=== PATIENT | female | born 1990 | race Two or more races ===

== ENCOUNTER 2016-12-18 09:25 | Emergency (ER) | payer SELFPAY ==
[2016-12-18 09:34] VITALS: BP 127/85; PULSE 71; TEMP 98.4; BMI 30.9
[2016-12-18] MEDS ORDERED: ACETAMINOPHEN 325 MG TABLET (FP) PO ONE (11:18)
--- NOTE | 2016-12-18 11:21 | PDOC ---
History of Present Illness - General Chief Complaint: Edema Stated Complaint: SWOLLEN LEGS Time Seen by Provider: 12/18/16 10:21 History Source: Patient - History of Present Illness Initial Comments: 12/18/16 11:16 26 year old female with right ankle pain and swelling x 15 days. denies injury, SOB, cough,recent travel. patient reports having an IUD. patient reports that she has a history of elevated uric acid. Lower Ext. Injury Location - Specific Injury Location Hips: left hip: no evidence of injury Extremity Pain Location - Extremity Pain Location Extremity Pain Locations: right: ankle (swelling with +1 edema) Past History - Travel Traveled outside of the country in the last 30 days: Yes Close contact w/someone who was outside of country & ill: No - Past Medical History Allergies/Adverse Reactions: Allergies Allergy/AdvReac Type Severity Reaction Status Date / Time No Known Drug Allergies Allergy Verified 12/18/16 09:34 Home Medications: Ambulatory Orders Ibuprofen 600 mg PO QID PRN #20 tablet 12/18/16 Anemia: No Asthma: No Cancer: No Cardiac Disorders: No Diabetes: No HTN: No Seizures: No Thyroid Disease: No Other medical history: GOUT - Psycho/Social/Smoking Cessation Hx Suicidal Ideation: No Smoking Status: No Smoking History: Never smoked Have you smoked in the past 12 months: No Number of Cigarettes Smoked Daily: 0 Hx Alcohol Use: No Drug/Substance Use Hx: No Hx Substance Use Treatment: No Review of Systems - Review of Systems Able to Perform ROS?: Yes Is the patient limited Romansh proficient: No Constitutional: No: Symptoms Reported, See HPI, Chills, Diaphoresis, Fever, Loss of Appetite, Malaise, Night Sweats, Weakness, Weight Stable, Unintentional Wgt. Loss, Unexplained wgt Loss, Other Musculoskeletal: Yes: Other (right ankle pain with swelling) *Physical Exam - Vital Signs Last Vital Signs Temp Pulse Resp BP Pulse Ox 98.4 F 71 18 127/85 98 12/18/16 09:31 12/18/16 09:31 12/18/16 09:31 12/18/16 09:31 12/18/16 09:31 - Physical Exam General Appearance: Yes: Appropriately Dressed Respiratory/Chest: positive: Lungs Clear, Normal Breath Sounds Cardiovascular: positive: Regular Rhythm, Regular Rate Gastrointestinal/Abdominal: positive: Normal Bowel Sounds, Soft Extremity: positive: Normal Capillary Refill, Normal Inspection, Normal Range of Motion, Other (equal pedal pulse + 1 pitting edema to right ankle and foot. pain with flexion) Integumentary: positive: Normal Color, Dry, Warm Neurologic: positive: Fully Oriented, Alert, Normal Mood/Affect Progress Note - Progress Note Progress Note: A: right ankle pain and swelling r/o DVT. likely gout flare up? P: Pain control U/s lower extremity *DC/Admit/Observation/Transfer Diagnosis at time of Disposition: Acute right ankle pain, Pedal edema - Discharge Dispostion Disposition: HOME - Prescriptions Prescriptions: Ibuprofen 600 mg PO QID PRN #20 tablet PRN Reason: Mild Pain - Referrals Referrals: Awilda Price MD [Staff Physician] - 2 Days - Patient Instructions Printed Discharge Instructions: DI for Ankle Pain Additional Instructions: elevate your legs. take ibuprofen 600 mg every 6 hours as needed for pain. splint for comfort. follow up with your doctor as soon as possible. - Post Discharge Activity Work/School Note: Back to Work
[2016-12-18] MEDS ORDERED: ACETAMINOPHEN 325 MG TABLET (FP) ONE (11:23)
== END 2016-12-18 12:53 | disposition home or self-care (01) ==
LOC: JERFT 09:25
DX: M25.571 Pain in right ankle and joints of right foot (principal); R60.0 Localized edema
CPT/HCPCS: 93971-TC; 99281-25

== ENCOUNTER 2020-08-06 08:02 | Inpatient (IN) | payer OTHER ==
[2020-08-06] MEDS: ELECTROLYTE-148 SOLN 1,000 ML IV SCH (09:20)
[2020-08-06 09:35] VITALS: BMI 36.0
[2020-08-06 09:35] LABS: BASO % 0.3 % (0-2.0); EOS % 1.3 % (0-4.5); HEMATOCRIT 33.3 % (32.4-45.2); HEMOGLOBIN 11.6 GM/dL (10.7-15.3); MCH 32.1 pg (25.7-33.7); MEAN CELL VOLUME 91.8 fl (80-96); MONO % 3.7 % (3.8-10.2); NEUT % 75.7 % (42.8-82.8); PLATELET COUNT 264 K/MM3 (134-434); RBC 3.62 M/mm3 (3.60-5.2); RDW 13.5 % (11.6-15.6); WHITE BLOOD COUNT 9.9 K/mm3 (4.0-10.0)
[2020-08-06 09:47] LABS: INR 0.94 (0.83-1.09); PROTHROMBIN TIME (PATIENT) 11.6 SEC (9.7-13.0)
[2020-08-06 09:50] LABS: ACTIVATED PTT 28.3 SECONDS (25.2-36.5)
[2020-08-06] MEDS ORDERED: OXYTOCIN 30 UNITS in 0.9% NS 30 UNIT/500 ML INFUS.BAG IVPB ONE (09:53)
[2020-08-06 10:13] LABS: CALCIUM 8.6 mg/dL (8.5-10.1)
[2020-08-06 10:14] LABS: BLOOD UREA NITROGEN 14.6 mg/dL (7-18)
[2020-08-06] MEDS ORDERED: OXYTOCIN 30 UNITS in 0.9% NS 30 UNIT/500 ML INFUS.BAG IVPB SCH (10:15)
[2020-08-06 10:17] LABS: CREATININE 0.8 mg/dL (0.55-1.3)
[2020-08-07] MEDS ORDERED: PCA PUMP NR ONE ×2 (00:14→07:30)
[2020-08-07] MEDS ORDERED: FENTANYL/BUPIVACAINE/NS/PF - PCEA - 50 ML DISP.SYRIN EP ONE ×2 (00:14→07:31)
[2020-08-07] MEDS ORDERED: NALOXONE HCL 0.4 MG/ML VIAL IVPUSH PRN (03:32)
[2020-08-07] MEDS ORDERED: FENTANYL/BUPIVACAINE/NS/PF - PCEA - 50 ML DISP.SYRIN EP SCH (03:45)
[2020-08-07] MEDS ORDERED: OXYTOCIN 20 UNITS in 0.9% NS 20 UNIT/1,000 ML INFUS.BAG IV ONE (08:29)
[2020-08-07] MEDS ORDERED: LIDOCAINE HCL 1% PRESERVATIVE FREE - 30ML VIAL ONE (08:29)
[2020-08-07] MEDS ORDERED: BISACODYL 10 MG SUPP.RECT RC PRN (09:03)
[2020-08-07] MEDS ORDERED: IBUPROFEN 600 MG TABLET (FP) PO PRN (09:03)
[2020-08-07] MEDS ORDERED: BENZOCAINE 28 GM HEMORRHOIDAL OINTMENT TP PRN (09:03)
[2020-08-07] MEDS ORDERED: WITCH HAZEL 50% (TUCKS) 40 PAD/JAR PAD TP PRN (09:03)
[2020-08-07] MEDS ORDERED: METHYLERGONOVINE MALEATE 0.2 MG/1 ML AMP IM PRN (09:03)
[2020-08-07] MEDS ORDERED: BENZOCAINE 20% 57 GM BOTTLE TP PRN (09:03)
[2020-08-07] MEDS ORDERED: ACETAMINOPHEN 325 MG TABLET (FP) PO PRN (09:03)
[2020-08-07] MEDS ORDERED: OXYTOCIN 20 UNITS in 0.9% NS 20 UNIT/1,000 ML INFUS.BAG IV SCH (09:15)
[2020-08-07] MEDS ORDERED: ACETAMINOPHEN 325 MG TABLET (FP) ONE (10:24)
[2020-08-07] MEDS ORDERED: IBUPROFEN 600 MG TABLET (FP) PO ONE (10:24)
[2020-08-07] MEDS: ELECTROLYTE-148 SOLN 1,000 ML IV SCH ×2 (10:28)
[2020-08-07] MEDS: PRENATAL VITAMINS W/ FOLIC ACID TABLET (FP) PO SCH (10:29)
[2020-08-07] MEDS ORDERED: PRENATAL VITAMINS W/ FOLIC ACID TABLET (FP) PO ONE (10:30)
[2020-08-07] MEDS ORDERED: DIPHTH,PERTUSS(ACELL),TET 0.5 ML DISP.SYRIN IM ONE (18:00)
[2020-08-07] MEDS ORDERED: FLU VACCINE (FLULAVAL) PF 60 MCG/0.5 ML SYRINGE 2020-2021 IM ONE (18:00)
[2020-08-08 08:28] LABS: BASO % 0.3 % (0-2.0); EOS % 0.7 % (0-4.5); HEMATOCRIT 31.4 % (32.4-45.2); HEMOGLOBIN 10.6 GM/dL (10.7-15.3); LYMPH % 16.2 % (8-40); MCH 31.5 pg (25.7-33.7); MCHC 33.8 g/dl (32.0-36.0); MEAN CELL VOLUME 93.2 fl (80-96); MEAN PLT VOLUME 9.1 fl (7.5-11.1); MONO % 3.9 % (3.8-10.2); NEUT % 78.9 % (42.8-82.8); PLATELET COUNT 253 K/MM3 (134-434); RBC 3.37 M/mm3 (3.60-5.2); RDW 13.8 % (11.6-15.6); WHITE BLOOD COUNT 18.4 K/mm3 (4.0-10.0)
[2020-08-08] MEDS: PRENATAL VITAMINS W/ FOLIC ACID TABLET (FP) PO SCH (10:39)
[2020-08-08] MEDS ORDERED: SENNOSIDES/DOCUSATE COMBO (SENNA PLUS) TABLET (UD) PO PRN (22:00)
[2020-08-09] MEDS: PRENATAL VITAMINS W/ FOLIC ACID TABLET (FP) PO SCH (12:05)
[2020-08-09 12:37] VITALS: BP 109/59; PULSE 94; TEMP 98.1
== END 2020-08-09 18:40 | disposition home or self-care (01) | DRG 560 ==
LOC: JLDR 08:02 → J3W 08-07 12:00
PROVIDERS: ADMIT Obstetrics & Gynecology; ATTEND Obstetrics & Gynecology
PROC: 3E033VJ Introduction of Other Hormone into Peripheral Vein, Percutaneous Approach (ICD-10-PCS; 2020-08-06)
PROC: 10907ZC Drainage of Amniotic Fluid, Therapeutic from Products of Conception, Via Natural or Artificial Opening (ICD-10-PCS; principal; 2020-08-07)
PROC: 0W8NXZZ Division of Female Perineum, External Approach (ICD-10-PCS; 2020-08-07)
PROC: 10E0XZZ Delivery of Products of Conception, External Approach (ICD-10-PCS; 2020-08-07)
PROC: 0HQ9XZZ Repair Perineum Skin, External Approach (ICD-10-PCS; 2020-08-07)
DX: O26.613 Liver and biliary tract disorders in pregnancy, third trimester (principal); K83.1 Obstruction of bile duct; O60.14X0 Preterm labor third trimester with preterm delivery third trimester, not applicable or unspecified; O70.0 First degree perineal laceration during delivery; O99.214 Obesity complicating childbirth; E66.9 Obesity, unspecified; Z3A.36 36 weeks gestation of pregnancy; Z37.0 Single live birth
CPT/HCPCS: 36415; 59409; 80048; 85025; 85610; 85730; 86780; 86850; 86900; 86901; 90715; G0008; Q2036

== ENCOUNTER 2020-08-18 12:32 | Emergency (ER) | payer OTHER ==
[2020-08-18 13:02] VITALS: BP 117/72; PULSE 66; TEMP 98.3; BMI 32.9
== END 2020-08-18 14:53 | disposition home or self-care (01) ==
LOC: JERFT 12:32
DX: Z11.59 Encounter for screening for other viral diseases (principal)
CPT/HCPCS: 99281-25; C9803; U0003